=== PATIENT | male | born 1965 | race Caucasian/White ===

== ENCOUNTER 2025-05-01 14:35 | Emergency (ER) | payer BC, SELFPAY ==
[2025-05-01 14:40] VITALS: BP 146/84
[2025-05-01 15:09] LABS: ALT (SGPT) 37 U/L (0-50); AST (SGOT) 28 U/L (17-59); Albumin 4.7 g/dl (3.5-5.0); Alkaline Phosphatase 46 U/L (38-126); Blood Urea Nitrogen 25 mg/dl (9-20); Calcium 10.5 mg/dl (8.4-10.2); Carbon Dioxide 31 mmol/L (22-30); Chloride 101 mmol/L (98-107); Glucose 232 mg/dl (70-99); Hematocrit 45.3 % (39.0-52.0); Hemoglobin 15.4 g/dL (13.0-18.0); Mean Corp Hgb Conc. 34.0 g/dL (33.0-37.0); Mean Corpuscular Volume 93.6 fL (80.0-94.0); Nucleated Red Blood Cells % 0 % (-); Platelet Count 231 10^3/uL (130-400); Potassium 4.8 mmol/L (3.5-5.1); Red Cell Dist. Width 11.9 % (11.5-14.5); Sodium 138 mmol/L (135-145); Total Protein 7.2 g/dl (6.3-8.2); eGFR > 60.00
[2025-05-01 15:27] LABS: Troponin I < 0.012 ng/ml
--- NOTE | 2025-05-01 17:23 | ED.GENMED ---
History of Present Illness
General
Chief Complaint: Chest Pain
Source: patient
Time Seen by Provider: 05/01/25 17:11
History of Present Illness
History of Present Illness:
59-year-old male presents to the emergency room complaining of chest pain. Patient has been having episodes of chest pain intermittently over the past several days. He describes them as flutterings of pain located in the far left side of his
chest. He has clusters of episodes each individual episode lasting just a second or 2 but having a cluster for about 45 minutes at a time. This prompted him to make an appointment with a paving stone installer. He has seen a paving stone installer in [place]
several years ago. He saw the paving stone installer at that time because he was having chest pain while training for half marathon. That workup included a stress test and ultimately a cardiac catheterization which was all clear. Patient did not have any
recurrence of symptoms until the above-described episode. Today the patient had an episode of discomfort in the central chest which he describes as 'elephant sitting on his chest. That episode lasted for about 30 minutes. No associated shortness
of breath, nausea, diaphoresis. The discomfort did not radiate. Currently the patient is asymptomatic and feels back to baseline. The episodes of chest discomfort have never occurred with exertion but rather without any clear inciting event.
Past History
Past History
ED Past Medical History: Hypercholesterolemia, IDDM and Other (back pain)
Social History
Tobacco: Smoker (occasional cigar)
Alcohol: Occasional
Personal: Single
Living: alone
Employment: Employed
Family History
Family History: Diabetes
Phy Exam
Physical Exam
Physical Exam:
General: Awake, Alert, Oriented X3. No acute distress.
Vitals: unremarkable
Head: Atraumatic
Eyes: Pupils equal, EOMI
Throat: Airway intact, no exudates
Neck: Trachea midline
Lungs: Clear and equal b/l
Heart: Regular rate, no murmurs
Abd: Soft, Nontender, No pulsatile mass
Neuro: Nonfocal
Skin: Warm, dry, no rash
Extremities: pulses equal b/l, no edema
Scores
Heart Score for Chest Pain Patients
STEMI patient?: No
History: Moderately Suspicious
ECG: Normal
Age: >45 - <65 years
Risk Factors: 1 or 2 Risk Factors
Troponin: </= Normal Limit
Heart Score for Chest Pain Patients: 3
Heart Score Risk: 2.5% MACE over next 6 weeks
Course
Orders/Labs/Results
Orders:
Orders
05/01/25 14:35
EKG [Electrocardiogram (*1)] Urgent
Reason for Study: Chest Pain
05/01/25 14:36
EKG- Treatment ONCE
05/01/25 14:47
Complete Blood Count/With Diff Urgent
Comprehensive Metabolic Panel Urgent
Troponin I Urgent
05/01/25 17:23
Electrocardiogram (*1) Stat
Reason for Study: Other
Other Reason for Exam: chest pain
EKG- Treatment ONCE
CR Chest - 2 Views Urgent
Comment:
Reason For Exam: chest pain
05/01/25 17:36
Troponin I Urgent
Abnormal Lab Results
05/01/25
14:47
MCH 31.8 H pg
(27.0-31.0)
Carbon Dioxide 31 H mmol/L
(22-30)
BUN 25 H mg/dl
(9-20)
Glucose 232 H mg/dl
(70-99)
Calcium 10.5 H mg/dl
(8.4-10.2)
Total Bilirubin 1.6 H mg/dl
(0.2-1.3)
05/01/25 14:47
05/01/25 14:47
Vital Signs
Initial and Last Documented VS:
Initial Vital Signs
Temp Pulse Resp BP Pulse Ox
98.8 F 81 18 146/84 98
05/01/25 14:40 05/01/25 14:40 05/01/25 14:40 05/01/25 14:40 05/01/25 14:40
Last Documented Vital Signs
Temp Pulse Resp BP Pulse Ox
98.5 F 70 18 128/73 98
05/01/25 17:40 05/01/25 18:40 05/01/25 18:40 05/01/25 18:00 05/01/25 17:40
MDM/Problems Addressed
Differential Diagnosis Includes:
Acute coronary syndrome, NSTEMI, GERD, musculoskeletal pain
MDM/Problems Addressed:
Patient presents with chest pain. Troponins negative x 2. EKG shows no acute ischemic changes. Patient has an appointment with a paving stone installer in [place] a couple days. Given he has 2 negative troponins and is pain-free at this time I feel
this is reasonable for him to have outpatient management. Patient encouraged to return if he has any further symptoms
*Pulse Oximetry
SaO2: 98
Oxygen Mode of Delivery: Room air
Patient hypoxic: no
*EKG
Interpreted by ED Provider?: Yes
Heart Rate: 60
Rate: normal
Rhythm: sinus
Interval: normal interval
QRS Pattern: normal QRS
Ischemia: no ischemia
*T[employer]ical [employer] Party Manager Interpretation
Rate: normal
Interpretation: normal
Heart Rate: 60
Rhythm: sinus
*Critical Care Note
Total Time (30-74mins, 75-104mins- exclusive of procedures): Not Applicable
Update Note
Update Note:
Repeat EKG is unchanged from his initial EKG
ED Attending Note
-
Portions of this chart may have been created with voice recognition software.� Occasional wrong word or��sound alike� substitutions may have occurred due to the inherent limitations of voice recognition software.
Discharge Plan
Departure
Patient Disposition: Home (Routine Discharge)
Date of Disposition: 05/01/25
Time of Disposition: 18:58
Patient with high blood pressure during this ER visit?: No
Condition: Good
Discharge Problem:
Chest pain
Instructions: Chest Pain NON-[facility] Medical Billing And Coding Specialist Follow Up
Prescriptions:
No Action
cyclobenzaprine 10 MG tablet
10 mg PO TIDPRN PRN (Reason: muscle spasm) Qty: 30 0RF
hydrocodone-acetaminophen 1 TABLET tablet
1 tab PO QIDPRN PRN (Reason: pain) Qty: 15 0RF
diclofenac sodium 75 MG tablet,delayed release (DR/EC)
75 mg PO BID Qty: 30 0RF
Rx Instructions:
take with food.
Referrals:
Claudine Chiu DO [Family Provider]
Activity Restrictions/Additional Instructions:
Follow-up with your paving stone installer in [place] as scheduled. Return to the emergency room if you have recurrence of the chest discomfort or you feel unwell.
Interventions
Interventions:
*Risk Screen - Suicide Last Done: 05/01/25 14:40
*General Assessment Last Done: 05/01/25 14:40
*Neglect/Abuse Screening Last Done: 05/01/25 14:40
*ED- Fall Risk Assessment Last Done: 05/01/25 17:40
*ED COVID-19 Vaccine History Last Done: 05/01/25 17:40
*Nursing Disposition Last Done: 05/01/25 19:34
ED- Cardiac Assessment Last Done: 05/01/25 17:40
Discharge Date and Time
Discharge Date/Time: 05/01/25 19:35
Print Language: TELUGU
[2025-05-01 17:38] VITALS: BP 155/77
[2025-05-01 17:40] VITALS: BP 155/77
[2025-05-01 18:00] VITALS: BP 128/73
[2025-05-01 18:14] LABS: Troponin I < 0.012 ng/ml
== END 2025-05-01 19:35 | disposition home or self-care (01) ==
LOC: EMR 14:35
PROVIDERS: Emergency Medicine; EMERGENCY PHYSICIAN Emergency Medicine; FAMILY PHYSICIAN Family Medicine
DX: R07.9 Chest pain, unspecified (principal); E10.9 Type 1 diabetes mellitus without complications; E78.00 Pure hypercholesterolemia, unspecified; F17.290 Nicotine dependence, other tobacco product, uncomplicated; Z79.4 Long term (current) use of insulin; Z83.3 Family history of diabetes mellitus
CPT/HCPCS: 99284; 71046; 80053; 84484; 85025; 93005